=== PATIENT | male | born 1955 | race Hispanic/Latino ===

== ENCOUNTER 2016-06-03 12:04 | Emergency (ER) | payer BC ==
[2016-06-03 12:34] VITALS: PULSE 69; RESP 16; TEMP 98.6; O2SAT 98
[2016-06-03 12:40] VITALS: BP 149/90
--- NOTE | 2016-06-03 13:11 | ED PDOC ---
HPI: General Adult Chief Complaint (Nursing): ENT Problem History Per: Patient History/Exam Limitations: no limitations Current Symptoms Are (Timing): Still Present Severity: Moderate Additional Complaint(s): 61-year-old male, presents to the emergency department with complaints of lesions to chin, left side of face and cheek. Patient states he began noticing a painful nodule to the chin about four days ago. States he noticed similar nodules to left cheek and scalp, resulting in him coming to the ED for evaluation. Patient did not take any medication to help relieve symptoms. Denies fevers, chills, shortness of breath, neck pain, dizziness, back pain, nausea/vomiting, or any other associated symptoms. No other complaints at this time. No Hx of similar. Past Medical History Reviewed: Historical Data, Nursing Documentation, Vital Signs Vital Signs: Last Vital Signs Temp 98.6 F 06/03/16 12:22 Pulse 69 06/03/16 12:22 Resp 16 06/03/16 12:22 BP 149/90 06/03/16 12:22 Pulse Ox 98 06/03/16 12:22 - Family History Family History: States: Unknown Family Hx - Home Medications Home Medications: Ambulatory Orders Medication Instructions Recorded Sulfamethoxazole/Trimethoprim 1 tab PO BID #14 tab 06/03/16 [Bactrim DS 800 mg-160 mg] - Allergies Allergies/Adverse Reactions: Allergies Allergy/AdvReac Type Severity Reaction Status Date / Time No Known Allergies Allergy Verified 06/03/16 12:34 Review of Systems ROS Statement: Except As Marked, All Systems Reviewed And Found Negative Constitutional: Negative for: Fever, Chills, Weakness ENT: Negative for: Nose Pain, Nose Congestion, Mouth Pain, Throat Pain, Throat Swelling Cardiovascular: Negative for: Chest Pain Respiratory: Negative for: Shortness of Breath Gastrointestinal: Negative for: Vomiting Skin: Negative for: Rash Neurological: Negative for: Weakness, Numbness Physical Exam - Reviewed Nursing Documentation Reviewed: Yes Vital Signs Reviewed: Yes - Physical Exam Appears: Positive for: Non-toxic, No Acute Distress Head Exam: Positive for: ATRAUMATIC, NORMOCEPHALIC Skin: Positive for: Warm, Dry. Negative for: Rash (Left face: There are three palpable nodules with no vesicles. Similar nodules to left scalp. Chin: Mildly tender nodule w/ excoriation and serosanguinous fluid. ) Eye Exam: Positive for: Normal appearance, EOMI ENT: Positive for: Normal ENT Inspection Neck: Positive for: Painless ROM, Supple ((+) lymphadenopathy) Cardiovascular/Chest: Positive for: Regular Rate, Rhythm Respiratory: Positive for: Normal Breath Sounds. Negative for: Accessory Muscle Use, Respiratory Distress Extremity: Positive for: Normal ROM Neurologic/Psych: Positive for: Alert, Oriented - ECG O2 Sat by Pulse Oximetry: 98 Medical Decision Making Medical Decision Making: Impression: 61y/o M comes in with lesions to the left side of face x4 days. Plan: * Bactrim * Reassess and Discharge Patient instructed to f/u with PMD outpatient. Asked to return immediately for any new or worsening symptoms. Patient is agreeable with plan. All questions answered. Scribe Attestation: Documented by Sigifredo Jimenez, acting as a scribe for AZEB Warren. Provider Attestation: All medical record entries made by the Scribe were at my direction and personally dictated by me. I have reviewed the chart and agree that the record accurately reflects my personal performance of the history, physical exam, medical decision making, and the department course for this patient. I have also personally directed, reviewed, and agree with the discharge instructions and disposition. Disposition - Clinical Impression Clinical Impression: Skin infection - Disposition Condition: STABLE Prescriptions: Sulfamethoxazole/Trimethoprim [Bactrim DS 800 mg-160 mg] 1 tab PO BID #14 tab Instructions: Shingles (ED), Acute Wound Care (ED), Shingles Vaccine (ED)
== END 2016-06-03 13:17 | disposition home or self-care (01) ==
LOC: H.ER 12:04
DX: L08.9 Local infection of the skin and subcutaneous tissue, unspecified (principal)

== ENCOUNTER 2016-06-05 12:36 | Emergency (ER) | payer BC ==
[2016-06-05 12:41] VITALS: BP 162/84; PULSE 74; RESP 18; TEMP 97.3
--- NOTE | 2016-06-05 14:36 | ED PDOC ---
HPI: Skin/Bite Injury Time Seen by Provider: 06/05/16 13:16 Chief Complaint (Nursing): Abnormal Skin Integrity Chief Complaint (Provider): Abnormal Skin Integrity History Per: Patient History/Exam Limitations: no limitations Onset/Duration Of Symptoms: Days Current Symptoms Are (Timing): Still Present Location Of Injury: Right: Face Quality Of Symptoms: Painful, Swollen Severity: Moderate Additional Complaint(s): Patient is a 61 year old male who presents to ED for evaluation of right sided facial pain with rash. Patient states initially 5 days ago he had a pimple to his chills that began to grow bigger. Denies discharge but states significantly painful. Evaluated in ED a few days ago for symptoms, diagnosed with possible MRSA and started on Bactrim. Patient states no relief, nor with a mild rash and swelling to right ear and scalp. Denies nose or eye involvement. No headache. Past Medical History Reviewed: Historical Data, Nursing Documentation, Vital Signs Vital Signs: Last Vital Signs Temp 97.3 F L 06/05/16 12:38 Pulse 74 06/05/16 12:38 Resp 18 06/05/16 12:38 BP 162/84 H 06/05/16 12:38 Pulse Ox 99 06/05/16 14:48 - Medical History PMH: No Chronic Diseases - Surgical History Surgical History: No Surg Hx - Family History Family History: States: Unknown Family Hx - Living Arrangements Living Arrangements: With Family - Home Medications Home Medications: Ambulatory Orders Medication Instructions Recorded Sulfamethoxazole/Trimethoprim 1 tab PO BID #14 tab 06/03/16 [Bactrim DS 800 mg-160 mg] Valacyclovir HCl [Valacyclovir] 1,000 mg PO TID 10 Days 06/05/16 oxyCODONE/Acetaminophen [Percocet 1 ea PO Q6 PRN #12 tab 06/05/16 5/325 mg Tab] - Allergies Allergies/Adverse Reactions: Allergies Allergy/AdvReac Type Severity Reaction Status Date / Time No Known Allergies Allergy Verified 06/03/16 12:34 Review of Systems ROS Statement: Except As Marked, All Systems Reviewed And Found Negative Constitutional: Negative for: Fever, Chills Eyes: Negative for: Vision Change ENT: Negative for: Ear Pain, Ear Discharge Respiratory: Negative for: Shortness of Breath Gastrointestinal: Negative for: Nausea, Vomiting Skin: Positive for: Rash Neurological: Negative for: Weakness, Numbness, Altered Mental Status, Headache Physical Exam - Reviewed Nursing Documentation Reviewed: Yes Vital Signs Reviewed: Yes - Physical Exam Appears: Positive for: Non-toxic, No Acute Distress Head Exam: Positive for: ATRAUMATIC Skin: Positive for: Normal Color, Warm, Rash (Swelling without flutuance like foliculitis to the chin 3cm non tenderness (+) erythema (-) vesicular rash.Right cheek (+) erythema with swelling) Eye Exam: Positive for: Normal appearance, EOMI, PERRL, Other (fluorescein exam no dendritic lesions). Negative for: Conjunctival injection ENT: Positive for: TM Is/Are (intact) Neck: Positive for: Normal, Painless ROM Back: Positive for: Normal Inspection Extremity: Positive for: Normal ROM Neurologic/Psych: Positive for: Alert, Oriented - ECG O2 Sat by Pulse Oximetry: 99 (RA) Pulse Ox Interpretation: Normal Medical Decision Making Medical Decision Making: Time: 1400 Initial impression: Secondary MRSA but consider shingles trigeminal nerve Initial plan: -- Wound culture Scribe Attestation: Documented by Marley Henderson acting as a scribe for Petra Trimble MD MD Scribe Attestation: All medical record entries made by the Scribe were at my direction and personally dictated by me. I have reviewed the chart and agree that the record accurately reflects my personal performance of the history, physical exam, medical decision making, and the department course for this patient. I have also personally directed, reviewed, and agree with the discharge instructions and disposition. Disposition - Clinical Impression Clinical Impression: Shingles, Cellulitis - Patient ED Disposition Is Patient to be Admitted: No Doctor Will See Patient In The: Office Counseled Patient/Family Regarding: Studies Performed, Diagnosis, Need For Followup - Disposition Referrals: [facility] [Outside] Disposition: Routine/Home Disposition Time: 14:52 Condition: GOOD Additional Instructions: Return for worsening. Follow up with your PCP in 2-3 days. Prescriptions: oxyCODONE/Acetaminophen [Percocet 5/325 mg Tab] 1 ea PO Q6 PRN #12 tab PRN Reason: Pain, Severe (8-10) Valacyclovir HCl [Valacyclovir] 1,000 mg PO TID 10 Days Instructions: Shingles (ED), Cellulitis (ED)
[2016-06-05] MEDS ORDERED: Oxycodone/Acetaminophen 5/325 mg Tab ONE (14:45)
[2016-06-05] MEDS ORDERED: Oxycodone/Acetaminophen 5/325 mg Tab PO STA (14:47)
[2016-06-05 15:01] VITALS: O2SAT 100
== END 2016-06-05 15:00 | disposition home or self-care (01) ==
LOC: H.ER 12:36
DX: B02.9 Zoster without complications (principal); R51 Headache